=== PATIENT | female | born 1965 | race Caucasian/White ===

== ENCOUNTER 2020-05-27 21:44 | Emergency (ER) | payer MEDICAID ==
[2020-05-27] MEDS ORDERED: MORPHINE SULFATE 10 MG/ML INJ IV ONE (22:58)
[2020-05-27] MEDS ORDERED: ONDANSETRON HCL INJ/PF 4 MG/2 ML SDV IV ONE (22:58)
--- NOTE | 2020-05-27 23:01 | ER Document Report ---
ED Medical Screen (RME) - General Chief Complaint: Abdominal Pain Stated Complaint: SEVERE ABDOMIAL PAIN, BACK PAIN Time Seen by Provider: 05/27/20 22:52 - HPI Notes: Patient is a 54-year-old female with a history of gallstones who presents with right upper quadrant pain that began last night. Patient states she was diagnosed with gallstones about 4 years ago and has occasional flares. She is usually able to manage the pain by drinking apple cider vinegar, however, this did not provide any relief today. Patient reports nausea but denies vomiting, diarrhea and fever. - Related Data Allergies/Adverse Reactions: amoxicillin [From Augmentin] Allergy (Verified 05/27/20 22:58) clavulanic acid [From Augmentin] Allergy (Verified 05/27/20 22:58) tetracycline Allergy (Verified 05/27/20 22:58) Past Medical History Malignancy Medical History: Reports: Hx Breast Cancer Physical Exam - Vital signs Vitals: Temp Pulse Resp BP Pulse Ox 98.3 F 98 16 147/97 H 96 05/27/20 22:11 05/27/20 22:11 05/27/20 22:11 05/27/20 22:11 05/27/20 22:11 - Abdominal Tenderness: Tender - RUQ and epigastric, Edgar's sign Course - Re-evaluation Re-evalutation: I have greeted and performed a rapid initial assessment of this patient. A comprehensive ED assessment and evaluation of the patient, analysis of test results and completion of medical decision making process will be conducted by an additional ED providers. - Vital Signs Vital signs: Temp Pulse Resp BP Pulse Ox 98.3 F 98 16 147/97 H 96 05/27/20 22:11 05/27/20 22:11 05/27/20 22:11 05/27/20 22:11 05/27/20 22:11
[2020-05-27 23:27] LABS: ABSOLUTE BASOPHILS # (AUTO) 0.1 10^3/uL (0.0-0.2); ABSOLUTE EOSINOPHILS # (AUTO) 0.6 10^3/uL (0.0-0.6); ABSOLUTE LYMPHOCYTES (AUTO) 3.9 10^3/uL (0.5-4.7); ABSOLUTE MONOCYTES (AUTO) 0.6 10^3/uL (0.1-1.4); ABSOLUTE NEUT (AUTO) 4.4 10^3/uL (1.7-8.2); BASOPHILS % (AUTO) 0.6 % (0-2); EOSINOPHILS % (AUTO) 6.6 % (0-6); HEMATOCRIT 41.1 % (36.0-47.0); HEMOGLOBIN 13.9 g/dL (12.0-15.5); LYMPHOCYTES % (AUTO) 40.8 % (13-45); MEAN CORPUSCULAR HEMOGLOBIN 30.6 pg (27.0-33.4); MEAN CORPUSCULAR HGB CONC 33.9 g/dL (32.0-36.0); MEAN CORPUSCULAR VOLUME 90 fl (80-97); MONOCYTES % (AUTO) 6.2 % (3-13); PLATELET COUNT 348 10^3/uL (150-450); RED BLOOD COUNT 4.55 10^6/uL (3.72-5.28); RED CELL DISTRIBUTION WIDTH 12.8 % (11.5-14.0); SEGMENTED NEUTROPHILS % (AUTO) 45.8 % (42-78); TOTAL CELLS COUNTED % (AUTO) 100 %; WHITE BLOOD COUNT 9.7 10^3/uL (4.0-10.5)
[2020-05-27 23:31] LABS: APPEARANCE,URINE SLIGHTLY-CLOUDY; BILIRUBIN,URINE NEGATIVE (NEGATIVE); CALCIUM OXALATE CRYSTALS,URINE FEW /HPF; COLOR,URINE YELLOW; GLUCOSE, URINE NEGATIVE (NEGATIVE); KETONES,URINE NEGATIVE (NEGATIVE); LEUKOCYTE ESTERASE,URINE TRACE (NEGATIVE); NITRITE,URINE NEGATIVE (NEGATIVE); PROTEIN,URINE NEGATIVE (NEGATIVE); URINE SPECIFIC GRAVITY 1.025; UROBILINOGEN,URINE NEGATIVE mg/dL (<2.0)
[2020-05-27 23:50] LABS: ALBUMIN 4.5 g/dL (3.5-5.0); ALKALINE PHOSPHATASE 112 U/L (38-126); ANION GAP 7 (5-19); ASPARTATE AMINO TRANSFERASE 24 U/L (14-36); BILIRUBIN,DIRECT 0.2 mg/dL (0.0-0.4); BILIRUBIN,TOTAL 0.3 mg/dL (0.2-1.3); BLOOD UREA NITROGEN 18 mg/dL (7-20); CARBON DIOXIDE 31 mmol/L (22-30); CHLORIDE 102 mmol/L (98-107); GLUCOSE 113 mg/dL (75-110); POTASSIUM 4.1 mmol/L (3.6-5.0); TOTAL PROTEIN 7.5 g/dL (6.3-8.2)
--- NOTE | 2020-05-27 23:51 | RADIOLOGY REPORT (SQ) ---
EXAM DESCRIPTION: US ABDOMEN LIMITED COMPLETED DATE/TME: 05/27/2020 23:41 CLINICAL HISTORY: RUQ pain COMPARISON: None. TECHNIQUE: Real-time sonographic images of the right upper abdomen were obtained using a curved multihertz transducer. FINDINGS: Pancreas: The visualized portions of the pancreas are unremarkable. Vascular: The visualized portions of the aorta and IVC are unremarkable. Liver: The liver has normal contour and increased echogenicity. Hepatopedal flow in the portal vein. Findings confirmed with color and spectral Doppler imaging. The common bile duct measures 0.3 cm. Gallbladder: Positive reported sonographic Edgar sign. No definite pericholecystic fluid collection. Mild wall thickening. Shadowing echogenic structures in the gallbladder lumen compatible with gallstones. Right Kidney: The right kidney measures 10.6 cm in length. No hydronephrosis, solid renal mass, or shadowing calculi. IMPRESSION: 1. Cholelithiasis with gallbladder wall thickening and positive reported sonographic Edgar sign. These findings could be seen with acute cholecystitis. 2. Hepatic steatosis.
[2020-05-28] MEDS ORDERED: HYDROMORPHONE HCL INJ/PF 2 MG/ML AMPULE IV ONE (01:59)
--- NOTE | 2020-05-28 02:49 | ER Document Report ---
ED GI/ - General Chief Complaint: Abdominal Pain Stated Complaint: SEVERE ABDOMIAL PAIN, BACK PAIN Time Seen by Provider: 05/27/20 22:52 Primary Care Provider: MICKY ZAMARRIPA MD [Primary Care Provider] - Follow up as needed DIAMOND GROSS MD [ACTIVE STAFF] - Follow up tomorrow (Call today for an outpatient follow-up appointment.) Mode of Arrival: Ambulatory Information source: Patient Notes: 54-year-old female past medical history significant for breast cancer presents to the emergency room with worsening right upper quadrant pain that started last night. Patient states she has been having gallbladder attacks for the past 4 months. Recently relocated to the area and has not established with a new primary care physician. Has not been taking any medications for symptoms. Describes the pain as sharp cramping to her right upper quadrant. No nausea, no vomiting, no fevers, no urinary symptoms. No COVID-19 exposure. TRAVEL OUTSIDE OF THE [place] IN LAST 30 DAYS: No - Related Data Allergies/Adverse Reactions: amoxicillin [From Augmentin] Allergy (Verified 05/27/20 22:58) clavulanic acid [From Augmentin] Allergy (Verified 05/27/20 22:58) tetracycline Allergy (Verified 05/27/20 22:58) Home Medications: cymbalta, singulair, klonipin Past Medical History - General Information source: Patient - Social History Smoking Status: Current Some Day Smoker Frequency of alcohol use: Occasional Drug Abuse: None Family History: Reviewed & Not Pertinent Patient has homicidal ideation: No Malignancy Medical History: Reports: Hx Breast Cancer Review of Systems - Review of Systems Constitutional: No symptoms reported Cardiovascular: No symptoms reported Respiratory: No symptoms reported Gastrointestinal: Abdominal pain. denies: Diarrhea, Nausea, Vomiting, Constipation Genitourinary: No symptoms reported Musculoskeletal: No symptoms reported Skin: No symptoms reported Neurological/Psychological: No symptoms reported -: Yes All other systems reviewed and negative Physical Exam - Vital signs Vitals: Temp Pulse Resp BP Pulse Ox 98.3 F 98 16 147/97 H 96 05/27/20 22:11 05/27/20 22:11 05/27/20 22:11 05/27/20 22:11 05/27/20 22:11 - Notes Notes: GENERAL: Mild acute distress, non-toxic appearance. HEAD: Normal with no signs of head trauma. EYES: PERRLA, EOMI, conjunctiva normal, no discharge. EARS: Hearing grossly intact. NOSE: Normal. THROAT: Oropharynx is normal. NECK: Normal range of motion, no tenderness, supple, no lymphadenopathy, No adenopathy, no JVD. CHEST: Clear breath sounds bilaterally. No wheezes, rales, or rhonchi. CARDIAC: Regular rate and rhythm. S1 and S2, without murmurs, gallops, or rubs. VASCULAR: No Edema. Peripheral pulses normal and equal in all extremities. ABDOMEN: Normal and soft with no tenderness, no masses or pulsatile masses. No organomegaly. Positive bowel sounds x4. No CVA tenderness noted bilaterally. No Edgar sign. GASTROINTESTINAL: Bowel sounds normal LYMPATHTIC: No lymphadenopathy noted. MUSCULOSKELETAL: Good range of motion of all major joints. Extremities without clubbing, cyanosis or edema. NEUROLOGICAL: Alert and oriented x 3. No focal sensory or strength deficits. Speech normal. Follows commands appropriately. PSYCHIATRIC: Normal Affect, judgement and mood. SKIN: Normal appearance with no rashes or lesions. Course - Re-evaluation Re-evalutation: 05/28/20 02:56 Patient is resting comfortably she is pain-free at this time. She is pain-free on exam. Reviewed all lab findings and ultrasound reports with the patient. She is aware that I have spoken with the on-call surgeon Dr. Gross who will follow up patient as an outpatient. She is to call the office in the morning for an appointment. Office information was provided. Avoid fatty foods, greasy foods, fried foods. Take pain medication as prescribed. E force reviewed okay for prescription. Patient was given strict return to the emergency room guidelines. Return for any new or worsening symptoms. All questions were answered. Patient verbalized understanding and agrees with plan of care. 05/28/20 04:31 - Vital Signs Vital signs: Temp Pulse Resp BP Pulse Ox 98.2 F 78 20 129/74 H 96 05/28/20 03:16 05/28/20 03:16 05/28/20 03:16 05/28/20 03:16 05/28/20 03:16 - Laboratory Results Result Diagrams: 05/27/20 23:10 05/27/20 23:10 Laboratory Results Interpreted: 01/10/21 01/10/21 01/10/21 23:10 23:10 23:10 Eos % (Auto) 6.6 H Carbon Dioxide 31 H Glucose 113 H Ur Leukocyte Esterase TRACE H Critical Laboratory Results Reviewed: No Critical Results - Radiology Results Critical Radiology Results Reviewed: Yes - Ultrasound shows acute cholecystitis with positive Edgar sign Attending or Supervising Physician who Reviewed Radiology: [facility] IV - Discussed with general surgery Dr. Gross - Consults Dr. Gross Time consulted: 02:56 Reason for consultation: 05/28/20 02:56 Reviewed lab findings, physical exam, and ultrasound results. Per Dr. Gross patient can be discharged home and follow-up in the office tomorrow. Consulted provider: follow-up in office Discharge - Discharge Clinical Impression: Acute cholecystitis Condition: Stable Disposition: HOME, SELF-CARE Instructions: Gallbladder Disease ([facility]), Low-Fat Diet ([facility]) Additional Instructions: Avoid greasy foods, fried foods, heavy sauces. Call Dr. Gross's office in the morning for an outpatient appointment. Take medication as prescribed. Return to the emergency room for any new or worsening symptoms. Prescriptions: Ondansetron [Zofran Odt 4 mg Tablet] 1 tab PO Q4HP PRN #10 tab.rapdis PRN Reason: Hydrocodone/Acetaminophen [[place] 5-325 mg Tablet] 1 tab PO Q6H PRN #12 tablet PRN Reason: For Pain Forms: Return to Work Referrals: MICKY ZAMARRIPA MD [Primary Care Provider] - Follow up as needed DIAMOND GROSS MD [ACTIVE STAFF] - Follow up tomorrow (Call today for an outpatient follow-up appointment.)
[2020-05-28 03:16] VITALS: BP 129/74
== END 2020-05-28 03:16 | disposition home or self-care (01) ==
LOC: ER 21:44
DX: K80.00 Calculus of gallbladder with acute cholecystitis without obstruction (principal); K76.0 Fatty (change of) liver, not elsewhere classified; R10.11 Right upper quadrant pain; F17.200 Nicotine dependence, unspecified, uncomplicated; Z79.899 Other long term (current) drug therapy; Z85.3 Personal history of malignant neoplasm of breast; Z88.0 Allergy status to penicillin; Z88.1 Allergy status to other antibiotic agents
CPT/HCPCS: 99285; 96374; 96375; 36415; 83690; 85025; 80053; 81001; 76705; J2270; J1170; J2405

== ENCOUNTER 2020-05-28 12:57 | Inpatient (IN) | payer OTHER, MEDICAID ==
[2020-05-28] MEDS ORDERED: NORMAL SALINE 1000 ML 1,000 ML IV ONE (14:12)
[2020-05-28] MEDS ORDERED: ONDANSETRON HCL INJ/PF 4 MG/2 ML SDV IV ONE (14:12)
[2020-05-28] MEDS ORDERED: MORPHINE SULFATE 10 MG/ML INJ IV ONE (14:12)
--- NOTE | 2020-05-28 14:12 | ER Document Report ---
ED Medical Screen (RME) - General Chief Complaint: Abdominal Pain >50 Stated Complaint: ABDOMINAL PAIN Time Seen by Provider: 05/28/20 14:10 Primary Care Provider: MICKY ZAMARRIPA MD [Primary Care Provider] - Follow up as needed Notes: HPI: 54-year-old female presenting to the emergency department with recurrent episodes of vomiting and severe epigastric abdominal pain. Patient was seen yesterday in the emergency department diagnosed with possible acute cholecystitis was to see surgery on Thursday but states she began throwing up again after she left the ER last night has not been able to keep pain medication or nausea medication down. PHYSICAL EXAMINATION: Patient with tenderness in the epigastric area, appears mildly ill, slightly pale. Review of patient's records showed normal lab work from yesterday but an ultrasound suggesting acute cholecystitis. Patient will be kept n.p.o. I have greeted and performed a rapid initial assessment of this patient. A comprehensive ED assessment and evaluation of the patient, analysis of test results and completion of medical decision making process will be conducted by an additional ED providers. Please note that clinical decision making for this patient was made during the 2019 pandemic of novel coronavirus which caused a significant strain on the healthcare system including at this particular facility. Criteria for admission discharge and level of care decisions as well as treatment decisions have necessarily changed TRAVEL OUTSIDE OF THE [place] IN LAST 30 DAYS: No - Related Data Allergies/Adverse Reactions: amoxicillin [From Augmentin] Allergy (Verified 05/28/20 14:08) clavulanic acid [From Augmentin] Allergy (Verified 05/28/20 14:08) tetracycline Allergy (Verified 05/28/20 14:08) Past Medical History Malignancy Medical History: Reports: Hx Breast Cancer Physical Exam - Vital signs Vitals: Temp Pulse Resp BP Pulse Ox 97.8 F 90 16 136/71 H 97 05/28/20 13:45 05/28/20 13:45 05/28/20 13:45 05/28/20 13:45 05/28/20 13:45 Course - Vital Signs Vital signs: Temp Pulse Resp BP Pulse Ox 97.8 F 90 16 136/71 H 97 05/28/20 13:45 05/28/20 13:45 05/28/20 13:45 05/28/20 13:45 05/28/20 13:45 Doctor's Discharge - Discharge Referrals: MICKY ZAMARRIPA MD [Primary Care Provider] - Follow up as needed
[2020-05-28 14:52] LABS: ABSOLUTE BASOPHILS # (AUTO) 0.1 10^3/uL (0.0-0.2); ABSOLUTE EOSINOPHILS # (AUTO) 0.1 10^3/uL (0.0-0.6); ABSOLUTE LYMPHOCYTES (AUTO) 1.4 10^3/uL (0.5-4.7); ABSOLUTE MONOCYTES (AUTO) 0.5 10^3/uL (0.1-1.4); ABSOLUTE NEUT (AUTO) 9.3 10^3/uL (1.7-8.2); BASOPHILS % (AUTO) 0.8 % (0-2); HEMATOCRIT 42.6 % (36.0-47.0); HEMOGLOBIN 14.2 g/dL (12.0-15.5); LYMPHOCYTES % (AUTO) 12.7 % (13-45); MEAN CORPUSCULAR HGB CONC 33.4 g/dL (32.0-36.0); MEAN CORPUSCULAR VOLUME 90 fl (80-97); PLATELET COUNT 382 10^3/uL (150-450); RED BLOOD COUNT 4.74 10^6/uL (3.72-5.28); RED CELL DISTRIBUTION WIDTH 13.3 % (11.5-14.0); SEGMENTED NEUTROPHILS % (AUTO) 81.5 % (42-78); TOTAL CELLS COUNTED % (AUTO) 100 %; WHITE BLOOD COUNT 11.4 10^3/uL (4.0-10.5)
[2020-05-28 15:04] LABS: APPEARANCE,URINE SLIGHTLY-CLOUDY; BILIRUBIN,URINE NEGATIVE (NEGATIVE); COLOR,URINE YELLOW; GLUCOSE, URINE NEGATIVE (NEGATIVE); KETONES,URINE NEGATIVE (NEGATIVE); LEUKOCYTE ESTERASE,URINE NEGATIVE (NEGATIVE); NITRITE,URINE NEGATIVE (NEGATIVE); PROTEIN,URINE NEGATIVE (NEGATIVE); UROBILINOGEN,URINE NEGATIVE mg/dL (<2.0)
[2020-05-28 15:06] LABS: ALBUMIN 4.6 g/dL (3.5-5.0); ALKALINE PHOSPHATASE 99 U/L (38-126); ASPARTATE AMINO TRANSFERASE 24 U/L (14-36); BILIRUBIN,DIRECT 0.2 mg/dL (0.0-0.4); BILIRUBIN,TOTAL 0.5 mg/dL (0.2-1.3); BLOOD UREA NITROGEN 18 mg/dL (7-20); CALCIUM 9.7 mg/dL (8.4-10.2); CARBON DIOXIDE 34 mmol/L (22-30); CHLORIDE 101 mmol/L (98-107); GLUCOSE 137 mg/dL (75-110); TOTAL PROTEIN 7.6 g/dL (6.3-8.2)
[2020-05-28 15:13] LABS: ANION GAP 3 (5-19); POTASSIUM 5.3 mmol/L (3.6-5.0)
--- NOTE | 2020-05-28 17:55 | ER Document Report ---
ED General - General Chief Complaint: Abdominal Pain >50 Stated Complaint: ABDOMINAL PAIN Time Seen by Provider: 05/28/20 14:10 Primary Care Provider: MICKY ZAMARRIPA MD [ACTIVE STAFF] - Follow up as needed TRAVEL OUTSIDE OF THE [place] IN LAST 30 DAYS: No - HPI Notes: 54-year-old female presents with vomiting and abdominal pain. Patient was seen in the emergency department yesterday, she was diagnosed with acute cholecystitis however was deemed appropriate for outpatient follow-up at the time. She states that she called the surgeon's office today and was told that she would not be able to be seen until Thursday. She reports that she has had constant vomiting since 9 AM this morning. Vomiting is yellow in color, she has not tolerated any p.o. today. She states she received Zofran via EMS which did not help. She reports persistent upper quadrant/epigastric pain. She reports a long history of cholelithiasis. She denies previous abdominal surgeries. Patient denies high blood pressure or diabetes. She denies use of blood thinners. Patient reports a history of breast cancer for which she received radiation, no chemotherapy. - Related Data Allergies/Adverse Reactions: amoxicillin [From Augmentin] Allergy (Verified 05/28/20 14:08) clavulanic acid [From Augmentin] Allergy (Verified 05/28/20 14:08) tetracycline Allergy (Verified 05/28/20 14:08) Home Medications: fluoxetine, clonazepam, tomaxifen, singulair Past Medical History - General Information source: Patient - Social History Smoking Status: Current Every Day Smoker Chew tobacco use (# tins/day): No Frequency of alcohol use: None Drug Abuse: None Family History: Reviewed & Not Pertinent Patient has homicidal ideation: No Malignancy Medical History: Reports: Hx Breast Cancer Review of Systems - Review of Systems Constitutional: No symptoms reported EENT: No symptoms reported Cardiovascular: denies: Chest pain Respiratory: denies: Short of breath Gastrointestinal: Abdominal pain, Nausea, Vomiting Genitourinary: No symptoms reported Female Genitourinary: No symptoms reported Musculoskeletal: No symptoms reported Skin: No symptoms reported Hematologic/Lymphatic: No symptoms reported Neurological/Psychological: No symptoms reported Physical Exam - Vital signs Vitals: Temp Pulse Resp BP Pulse Ox 97.8 F 90 16 136/71 H 97 05/28/20 13:45 05/28/20 13:45 05/28/20 13:45 05/28/20 13:45 05/28/20 13:45 - General General appearance: Alert Notes: Ill-appearing - HEENT Head: Normocephalic, Atraumatic Eyes: No: Scleral icterus Extraocular movements intact: Yes Pupils: PERRL - Respiratory Breath sounds: Normal - Cardiovascular Rhythm: Regular Heart sounds: Normal auscultation - Abdominal Distension: No distension Tenderness: Tender - Right upper quadrant. No: Guarding, Rebound - Extremities General lower extremity: No: Edema - Neurological Neuro grossly intact: Yes Cognition: Normal Orientation: AAOx4 - Psychological Associated symptoms: Normal affect - Skin Skin Temperature: Warm Course - Re-evaluation Re-evalutation: 54-year-old female history [place] lithiasis here for worsening right upper quadrant pain and persistent vomiting. Patient was seen in the emergency department yesterday, her ultrasound had evidence of acute cholecystitis. Patient is alert, afebrile and hemodynamically stable. She does have marked right upper quadrant tenderness and appears to not be feeling well. Reviewed the ultrasound from yesterday. Suspect her symptomatology is likely due to continuation of acute cholecystitis. She is not jaundiced appearing. Labs from triage reviewed. Leukocytosis with left shift is now present. Slight hype rkalemia, expect this to downtrend following fluids. Creatinine within normal limits. No elevation of T bili, LFTs or lipase. Will keep n.p.o., start fluids and Toradol for pain. Reports no relief with Zofran, will trial Phenergan for pain. Will touch base with surgery. 05/28/20 18:[address] Anderson, will admit under his service. Rapid Covid testing ordered. 05/28/20 18:12 Patient updated on plan for admission - Vital Signs Vital signs: Temp Pulse Resp BP Pulse Ox 97.8 F 90 16 136/71 H 97 05/28/20 13:45 05/28/20 13:45 05/28/20 13:45 05/28/20 13:45 05/28/20 13:45 - Laboratory Results Result Diagrams: 05/28/20 14:27 05/28/20 14:27 Laboratory Results Interpreted: 05/28/20 05/28/20 05/28/20 14:27 14:27 14:27 WBC 11.4 H Lymph % (Auto) 12.7 L Absolute Neuts (auto) 9.3 H Seg Neutrophils % 81.5 H Potassium 5.3 H D Carbon Dioxide 34 H Anion Gap 3 L Glucose 137 H Lipase 22.9 L Urine Blood SMALL H Critical Laboratory Results Reviewed: No Critical Results - Radiology Results Critical Radiology Results Reviewed: No Critical Results Discharge - Discharge Clinical Impression: Acute cholecystitis Disposition: ADMITTED INPATIENT Admitting Provider: Surgicalist - [place] [facility] Admitted: Surgical Floor Referrals: MICKY ZAMARRIPA MD [ACTIVE STAFF] - Follow up as needed
[2020-05-28] MEDS ORDERED: KETOROLAC TROMETHAMINE INJ/PF 30 MG/1 ML SDV IV ONE (18:01)
[2020-05-28] MEDS ORDERED: PROMETHAZINE HCL INJ 25 MG/1 ML VIAL IV ONE (18:01)
[2020-05-28] MEDS ORDERED: RINGERS SOLUTION,LACTATED 1,000 ML IV ONE ×2 (18:02→19:00)
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
[2020-05-28] MEDS ORDERED: ONDANSETRON HCL INJ/PF 4 MG/2 ML SDV IV PRN (19:50)
[2020-05-28] MEDS ORDERED: RINGERS SOLUTION,LACTATED 1,000 ML IV PRN (19:50)
[2020-05-28] MEDS ORDERED: DEXTROSE 40% GEL 15 GM TUBE PO PRN ×2 (20:56)
[2020-05-28] MEDS ORDERED: GLUCAGON,HUMAN RECOMB 1 MG INJ SUBCUT PRN (20:56)
[2020-05-28] MEDS ORDERED: DEXTROSE 50%-WATER 25 GM/50 ML DISP.SYRIN IV PRN ×2 (20:56)
[2020-05-28] MEDS ORDERED: CIPROFLOXACIN 400 MG/D5W RTU 400 MG/200 ML RTUPB IV ONE (22:38)
[2020-05-28] MEDS: CIPROFLOXACIN 400 MG/D5W RTU 400 MG/200 ML RTUPB IV SCH (22:59)
[2020-05-29] MEDS ORDERED: ACETAMINOPHEN 1,000 MG/100 ML RTUPB IV ONE ×3 (00:10→13:11)
[2020-05-29] MEDS: ACETAMINOPHEN INJ/PF 1000 MG/100 ML SDV IV SCH ×3 (00:19→13:17)
[2020-05-29] MEDS ORDERED: FENTANYL CITRATE INJ/PF 100 MCG/2 ML AMPUL ONE (09:13)
[2020-05-29] MEDS ORDERED: KETOROLAC TROMETHAMINE 60 MG/2 ML SDV ONE (09:13)
[2020-05-29] MEDS ORDERED: MIDAZOLAM 2 MG/2 ML INJ ONE (09:13)
[2020-05-29] MEDS ORDERED: MORPHINE SULFATE 10 MG/ML INJ ONE (09:14)
[2020-05-29] MEDS ORDERED: ONDANSETRON HCL INJ/PF 4 MG/2 ML SDV ONE (09:14)
[2020-05-29] MEDS ORDERED: DEXAMETHASONE SOD PHOSPHATE INJ 4 MG/1 ML VIAL ONE (09:14)
[2020-05-29] MEDS ORDERED: SUGAMMADEX SODIUM 200 MG/2 ML SDV IV ONE (09:14)
[2020-05-29] MEDS ORDERED: PROPOFOL INJ 200 MG/20 ML VIAL IV ONE (09:14)
[2020-05-29] MEDS ORDERED: BUPIVACAINE HCL 0.25% /EPINEPHRINE INJ/PF 30 ML SDV ONE (09:24)
[2020-05-29] MEDS ORDERED: IPRATROPIUM/ALBUTEROL 0.5-2.5 MG/3 ML AMPUL NEB ONE (09:38)
[2020-05-29] MEDS ORDERED: CIPROFLOXACIN 400 MG/D5W RTU 400 MG/200 ML RTUPB IV ONE (09:45)
[2020-05-29] MEDS: CIPROFLOXACIN 400 MG/D5W RTU 400 MG/200 ML RTUPB IV SCH ×2 (09:50→22:33)
--- NOTE | 2020-05-29 10:09 | PDOC PROGRESS REPORT ---
Subjective Date:: 05/29/20 Subjective:: Patient complaining of right upper quadrant pain Reason For Visit: ACUTE CHOLETCYSTITIS Physical Exam Vital Signs: Temp Pulse Resp BP Pulse Ox 97.7 F 75 16 122/72 92 05/29/20 08:52 05/29/20 08:01 05/29/20 08:01 05/29/20 08:01 05/29/20 08:01 Intake & Output 05/28/20 05/29/20 05/30/20 06:59 06:59 06:59 Intake Total 1200 Balance 1200 Weight 69 kg General appearance: PRESENT: no acute distress, obese GI/Abdominal exam: PRESENT: Edgar's sign - Positive, other - Not distended, slightly tender right upper quadrant, Results Laboratory Results: 05/28/20 14:27 05/28/20 14:27 05/28/20 05/28/20 05/28/20 14:27 14:27 14:27 WBC 11.4 H RBC 4.74 Hgb 14.2 Hct 42.6 MCV 90 MCH 30.0 MCHC 33.4 RDW 13.3 Plt Count 382 Seg Neutrophils % 81.5 H Sodium 138.1 Potassium 5.3 H D Chloride 101 Carbon Dioxide 34 H Anion Gap 3 L BUN 18 Creatinine 0.87 Est GFR ( Amer) > 60 Glucose 137 H Calcium 9.7 Total Bilirubin 0.5 AST 24 Alkaline Phosphatase 99 Total Protein 7.6 Albumin 4.6 Lipase 22.9 L Urine Color YELLOW Urine Appearance SLIGHTLY-CLOUDY Urine pH 5.0 Ur Specific [place] 1.020 Urine Protein NEGATIVE Urine Glucose (UA) NEGATIVE Urine Ketones NEGATIVE Urine Blood SMALL H Urine Nitrite NEGATIVE Ur Leukocyte Esterase NEGATIVE Urine WBC (Auto) 13 Urine RBC (Auto) 9 Assessment & Plan - Time Anticipated Discharge Disposition: Home, Self Care Anticipated Discharge Timeframe: within 24 hours - Plan Summary Plan Summary: Assessment: Healthy 52-year-old female with right upper quadrant pain, positive Edgar sign Ultrasound gallbladder reveals cholelithiasis with cholecystitis Blood work within normal limits Plan: Laparoscopic cystectomy possible open, possible cholangiogram Procedure, risks, benefits, complications, alternatives, including possibility of bleeding from the liver, injury to the common bile duct requiring transfer to tertiary center for open repair, heart attack, stroke, and have been explained to the patient, she understands all the above, her questions answered, she decides to proceed
[2020-05-29] MEDS ORDERED: MORPHINE SULFATE 10 MG/ML INJ IV PRN (11:11)
[2020-05-29] MEDS ORDERED: OXYCODONE-ACETAMINOPHEN 5-325 MG TABLET PO PRN ×2 (11:11)
[2020-05-29] MEDS ORDERED: FENTANYL CITRATE INJ/PF 100 MCG/2 ML AMPUL IV PRN ×3 (11:11)
[2020-05-29] MEDS ORDERED: PROMETHAZINE HCL INJ 25 MG/1 ML VIAL IV PRN (11:11)
[2020-05-29] MEDS ORDERED: ONDANSETRON HCL INJ/PF 4 MG/2 ML SDV IV PRN ×2 (11:11→12:28)
[2020-05-29] MEDS ORDERED: MEPERIDINE HCL/PF INJ 25 MG/1 ML DISP.SYRIN IV PRN (11:11)
[2020-05-29] MEDS ORDERED: DIPHENHYDRAMINE HCL 50 MG/ML VIAL IV PRN (11:11)
--- NOTE | 2020-05-29 12:28 | Operative Report ---
Nonrecallable Operative Report DATE OF SURGERY: 05/29/20 PREOPERATIVE DIAGNOSIS: Acute cholecystitis with cholelithiasis POSTOPERATIVE DIAGNOSIS: Same OPERATION: Laparoscopic cholecystectomy ANESTHESIA: GA - 30 mL 0.25% Marcaine TISSUE REMOVED OR ALTERED: gallBladder COMPLICATIONS: None ESTIMATED BLOOD LOSS: 20 mL INTRAOPERATIVE FINDINGS: Inflamed thickened wall of gallbladder PROCEDURE: The procedure was done in the operating room. The patient was placed in a supine position, general anesthesia induced by endotracheal intubation, the abdomen was prepped and draped in usual fashion. An incision was made just above the umbilicus with a #15 blade, the skin was tented with towel clips and a 5 mm port with Optiview adapter and scope was inserted through the abdominal wall into the peritoneal cavity. CO2 pneumoperitoneum was obtained, under direct visualization a 12 mm port was inserted in the epigastrium and two 5 mm ports were placed in the right lateral quadrant of the abdomen under direct visualization. The patient was placed in steep reverse Trendelenburg position, the right side was elevated, the gallbladder fundus was grasped and the gallbladder was elevated and retroflexed; the cystic neck was identified, grasped, and pulled anterior to the patient's right with exposure of the triangle of [place]. The critical view of safety was obtained by dividing the peritoneal attachments of the gallbladder body both medially and laterally with a hook cautery. When this was accomplished, the hook cautery dissection was continued toward the cystic neck. An opening was then obtained posterior to the cystic duct which was enlarged with a peanut dissector and with a right angle dissector. Once the critical view of safety was obtained, the cystic duct was carefully dissected with a hook cautery and a space was developed between the cystic duct and cystic artery with a right angle dissector. Both were then double clipped proximally and distally and divided with scissors. The gallbladder was dissected from the liver bed using hook cautery at high settings, and extracted from the peritoneal cavity with an Endobag through the epigastric port. The pneumoperitoneum was then re-established, the gallbladder fossa was examined and found to be free from blood or bile staining. The right upper quadrant was then irrigated with normal saline until clear. The epigastric fascial defect was closed with a [id number] 0 Vicryl suture, placed with a fascia closure device under direct visualization, and left untied. All instruments were removed, the CO2 pneumoperitoneum was released, and all the ports were removed. The epigastric fascial defect was closed with the previously placed [id number] 0 Vicryl suture, all skin incisions were closed with a 4-0 PDS running subcuticular suture, and Dermabond was applied. The patient tolerated the procedure well, was extubated, and transferred to the recovery room in satisfactory conditions.
[2020-05-29] MEDS: FAMOTIDINE INJ/PF 20 MG/2 ML SDV IV SCH (13:16)
[2020-05-29] MEDS: ACETAMINOPHEN 1,000 MG/100 ML RTUPB IV SCH (17:48)
[2020-05-29] MEDS ORDERED: KETOROLAC TROMETHAMINE INJ/PF 30 MG/1 ML SDV IV SCH (18:00)
[2020-05-29] MEDS: CLINDAMYCIN 600 MG/D5W RTU 600 MG/50 ML RTUPB IV SCH (19:00)
[2020-05-29] MEDS: NORMAL SALINE 1000 ML 1,000 ML IV PRN (20:25)
[2020-05-29] MEDS: KETOROLAC TROMETHAMINE INJ/PF 30 MG/1 ML SDV IV SCH (21:58)
[2020-05-29] MEDS ORDERED: CIPROFLOXACIN 400 MG/D5W RTU 400 MG/200 ML RTUPB IV SCH (22:00)
[2020-05-30] MEDS ORDERED: ACETAMINOPHEN 1,000 MG/100 ML RTUPB IV ONE
[2020-05-30] MEDS: FAMOTIDINE INJ/PF 20 MG/2 ML SDV IV SCH ×2 (00:03→11:29)
[2020-05-30] MEDS: ACETAMINOPHEN 1,000 MG/100 ML RTUPB IV SCH ×2 (00:05→06:25)
[2020-05-30] MEDS: KETOROLAC TROMETHAMINE INJ/PF 30 MG/1 ML SDV IV SCH ×2 (02:14→11:37)
[2020-05-30] MEDS: CLINDAMYCIN 600 MG/D5W RTU 600 MG/50 ML RTUPB IV SCH ×2 (02:15→11:36)
[2020-05-30] MEDS: NORMAL SALINE 1000 ML 1,000 ML IV PRN (06:22)
[2020-05-30] MEDS ORDERED: ENOXAPARIN SODIUM INJ 40 MG/0.4 ML DISP.SYRIN SUBCUT SCH (07:00)
--- NOTE | 2020-05-30 08:23 | PDOC DISCHARGE SUMMARY ---
General - Admit/Disc Date/PCP Admission Date/Primary Care Provider: 05/28/20 18:26 SAUNDRA ISH THORPE-C Discharge Date: 05/30/20 - Discharge Diagnosis Final Diagnosis: Acute cholecystitis - Assessment Summary: Patient was admitted on 05/28/2020 with right upper quadrant pain diagnosis of acute cholecystitis was made she was taken to the operating room yesterday on 05/29/2019 for elective laparoscopic cholecystectomy. She underwent the procedure and tolerated well. Today postop day 2 she is afebrile stable vital signs she is tolerating a diet and ready for discharge home. She will be followed up in surgical clinic in 7 days 10 days after discharge. - Additional Information Resuscitation Status: Full Code Discharge Diet: As Tolerated Discharge Activity: Activity As Tolerated, No Lifting Over 10 Pounds Referrals: MICKY ZAMARRIPA MD [ACTIVE STAFF] - Follow up as needed Prescriptions: Hydrocodone/Acetaminophen [[place] 10-325 mg Tablet] 1 tab PO Q6HP PRN #10 tablet PRN Reason: Home Medications: Clonazepam [Klonopin] 0.5 mg PO HSP PRN 05/28/20 Duloxetine HCl [Cymbalta 30 mg Capsule.dr] 30 mg PO DAILY 05/28/20 Montelukast Sodium [Singulair 10 mg Tablet] 10 mg PO QHS 05/28/20 Tamoxifen Citrate [Nolvadex 10 Mg Tablet] 10 mg PO DAILY 05/28/20 Hydrocodone/Acetaminophen [[place] 10-325 mg Tablet] 1 tab PO Q6HP PRN #10 tablet 05/30/20 History of Present Illiness History of Present Illness: LESLY LAWS is a 54 year old female Physical Exam Vital Signs: Temp Pulse Resp BP Pulse Ox 97.8 F 69 16 132/82 H 97 05/30/20 07:55 05/30/20 07:55 05/30/20 07:55 05/30/20 07:55 05/30/20 07:55 Intake & Output 05/29/20 05/30/20 05/31/20 06:59 06:59 06:59 Intake Total 1200 3725 Output Total 815 Balance 1200 2910 Weight 69 kg 69 kg Results Laboratory Results: WBC 11.4 10^3/uL (4.0-10.5) H 05/28/20 14:27 RBC 4.74 10^6/uL (3.72-5.28) 05/28/20 14:27 Hgb 14.2 g/dL (12.0-15.5) 05/28/20 14: Hct 42.6 % (36.0-47.0) 05/28/20 14:27 MCV 90 fl (80-97) 05/28/20 14: MCH 30.0 pg (27.0-33.4) 05/28/20 14: MCHC 33.4 g/dL (32.0-36.0) 05/28/20 14: RDW 13.3 % (11.5-14.0) 05/28/20 14:27 Plt Count 382 10^3/uL (150-450) 05/28/20 14: Lymph % (Auto) 12.7 % (13-45) L 05/28/20 14: [place] % (Auto) 4.0 % (3-13) 05/28/20 14: Eos % (Auto) 1.0 % (0-6) 05/28/20 14: Baso % (Auto) 0.8 % (0-2) 05/28/20 14:27 Absolute Neuts (auto) 9.3 10^3/uL (1.7-8.2) H 05/28/20 14: Absolute Lymphs (auto) 1.4 10^3/uL (0.5-4.7) 05/28/20 14: Absolute Monos (auto) 0.5 10^3/uL (0.1-1.4) 05/28/20 14: Absolute Eos (auto) 0.1 10^3/uL (0.0-0.6) 05/28/20 14:27 Absolute Basos (auto) 0.1 10^3/uL (0.0-0.2) 05/28/20 14: Seg Neutrophils % 81.5 % (42-78) H 05/28/20 14:27 Sodium 138.1 mmol/L (137-145) 05/28/20 14:27 Potassium 5.3 mmol/L (3.6-5.0) H D 05/28/20 14:27 Chloride 101 mmol/L (98-107) 05/28/20 14:27 Carbon Dioxide 34 mmol/L (22-30) H 05/28/20 14:27 Anion Gap 3 (5-19) L 05/28/20 14:27 BUN 18 mg/dL (7-20) 05/28/20 14:27 Creatinine 0.87 mg/dL (0.52-1.25) 05/28/20 14:27 Est GFR ( Amer) > 60 (>60) 05/28/20 14:27 Est GFR (MDRD) Non-Af > 60 (>60) 05/28/20 14:27 Glucose 137 mg/dL (75-110) H 05/28/20 14:27 Calcium 9.7 mg/dL (8.4-10.2) 05/28/20 14:27 Total Bilirubin 0.5 mg/dL (0.2-1.3) 05/28/20 14: Direct Bilirubin 0.2 mg/dL (0.0-0.4) 05/28/20 14:27 Neonat Total Bilirubin Not Reportable 05/28/20 14:27 Neonat Direct Bilirubin Not Reportable 05/28/20 14:27 Neonat Indirect Bili Not Reportable 05/28/20 14:27 AST 24 U/L (14-36) 05/28/20 14:27 ALT 22 U/L (<35) 05/28/20 14:27 Alkaline Phosphatase 99 U/L (38-126) 05/28/20 14:27 Total Protein 7.6 g/dL (6.3-8.2) 05/28/20 14:27 Albumin 4.6 g/dL (3.5-5.0) 05/28/20 14:27 Lipase 22.9 U/L (23-300) L 05/28/20 14:27 Urine Color YELLOW 05/28/20 14:27 Urine Appearance SLIGHTLY-CLOUDY 05/28/20 14:27 Urine pH 5.0 (5.0-9.0) 05/28/20 14:27 Ur Specific [place] 1.020 05/28/20 14:27 Urine Protein NEGATIVE mg/dL (NEGATIVE) 05/28/20 14:27 Urine Glucose (UA) NEGATIVE mg/dL (NEGATIVE) 05/28/20 14: Urine Ketones NEGATIVE mg/dL (NEGATIVE) 05/28/20 14:27 Urine Blood SMALL (NEGATIVE) H 05/28/20 14:27 Urine Nitrite NEGATIVE (NEGATIVE) 05/28/20 14:27 Urine Bilirubin NEGATIVE (NEGATIVE) 05/28/20 14:27 Urine Urobilinogen NEGATIVE mg/dL (<2.0) 05/28/20 14:27 Ur Leukocyte Esterase NEGATIVE (NEGATIVE) 05/28/20 14:27 Urine WBC (Auto) 13 /HPF 05/28/20 14:27 Urine RBC (Auto) 9 /HPF 05/28/20 14:27 U Hyaline Cast (Auto) 4 /LPF 05/28/20 14:27 Urine Bacteria (Auto) TRACE /HPF 05/28/20 14:27 Squamous Epi Cells Auto 11 /HPF 05/28/20 14:27 Urine Mucus (Auto) MANY /LPF 05/28/20 14:27 Urine Ascorbic Acid NEGATIVE (NEGATIVE) 05/28/20 14:27 Influenza A (RT-PCR) NEGATIVE (NEGATIVE) 05/28/20 19:09 Influenza B (RT-PCR) NEGATIVE (NEGATIVE) 05/28/20 19:09 RSV (RT-PCR) NEGATIVE (NEGATIVE) 05/28/20 19:09 SARS-CoV-2 Rap RNA(RT-PCR) NEGATIVE (NEGATIVE) 05/28/20 19:09
[2020-05-30 09:49] VITALS: BP 120/68
[2020-05-30] MEDS: CIPROFLOXACIN 400 MG/D5W RTU 400 MG/200 ML RTUPB IV SCH (11:37)
== END 2020-05-30 10:24 | disposition home or self-care (01) | DRG 419 ==
LOC: ER 12:57 → EH 18:26 → 2S 20:42
PROVIDERS: ATTEND Surgery
PROC: 0FT44ZZ Resection of Gallbladder, Percutaneous Endoscopic Approach (ICD-10-PCS; principal; 2020-05-29 10:00)
DX: K80.00 Calculus of gallbladder with acute cholecystitis without obstruction (principal); Z88.0 Allergy status to penicillin; Z88.8 Allergy status to other drugs, medicaments and biological substances; F17.200 Nicotine dependence, unspecified, uncomplicated; E87.5 Hyperkalemia; Z85.3 Personal history of malignant neoplasm of breast; F41.1 Generalized anxiety disorder; Z92.29 Personal history of other drug therapy; Z20.822 Contact with and (suspected) exposure to COVID-19
CPT/HCPCS: 36415; 790; 80053; 81001; 83690; 85025; 88304; 94799; 0241U; C9803; J0131; J0744; J1100; J1650; J1885; J2250; J2270; J2405; J2550; J2704; J3010; J3490; J7030; J7120; S0028